=== PATIENT | female | born 1980 | race Caucasian/White ===

== ENCOUNTER 2021-01-14 07:26 | Emergency (ER) | payer OTHER ==
[~2021-01-14] VITALS: Ht 167.6 cm; Wt 90.7 kg
[2021-01-14 07:29] VITALS: BP_SYST 148
[2021-01-14 07:56] LABS: BILIRUBIN,URINE NEGATIVE (NEGATIVE); BLOOD, URINE 3+ (NEGATIVE); CLARITY/URINE CLEAR (CLEAR); COLOR,URINE YELLOW (YELLOW); GLUCOSE,URINE NEGATIVE (NEGATIVE); KETONES,URINE NEGATIVE (NEGATIVE); LEUKOCYTE ESTERASE ,URINE 1+ (NEGATIVE); NITRITE, URINE NEGATIVE (NEGATIVE); PROTEIN URINE 2+ (NEGATIVE); UROBILINOGEN,URINE 0.2 (0.2-1.0)
[2021-01-14] MEDS ORDERED: LIDOCAINE 1%, 20 ML MDV 0 ML ONE (08:05)
[2021-01-14] MEDS ORDERED: LIDOCAINE/EPI 1% 1:100000 20 ML VIAL INJ ONE (08:08)
[2021-01-14 08:09] LABS: BACTERIA,URINE FEW /HPF (None Seen); RBC,URINE 20-50 /HPF (0-3)
[2021-01-14 08:10] LABS: MUCUS,URINE 1+ /LPF (None Seen)
[2021-01-14] MEDS ORDERED: CIPR500T5 PO (08:39)
[2021-01-14] MEDS ORDERED: AMOX-426 PO (08:39)
[2021-01-14] MEDS ORDERED: IBUPROFEN 600 MG TABLET PO ONE (08:45)
[2021-01-14] MEDS ORDERED: CIPROFLOXACIN HCL 500 MG TABLET PO ONE (08:45)
[2021-01-14] MEDS ORDERED: AMOXICILLIN/CLAVULANATE POTASSIUM 875 MG TABLET PO ONE (08:45)
[2021-01-14 08:57] VITALS: BP_SYST 142
== END 2021-01-14 08:58 | disposition home or self-care (01) ==
LOC: SED 07:26
DX: N75.0 Cyst of Bartholin's gland (principal); N39.0 Urinary tract infection, site not specified; F41.9 Anxiety disorder, unspecified; F17.200 Nicotine dependence, unspecified, uncomplicated
CPT/HCPCS: 81000-TC; 87086; 99284; J2001